=== PATIENT | male | born 1995 | race Two or more races ===

== ENCOUNTER 2017-09-18 03:53 | Emergency (ER) | payer OTHER ==
[~2017-09-18] VITALS: Ht 172.7 cm; Wt 102.9 kg
[2017-09-18 03:55] VITALS: BP 150/98
== END 2017-09-18 04:52 | disposition home or self-care (01) ==
LOC: ED 04:09
DX: K64.4 Residual hemorrhoidal skin tags (principal)
CPT/HCPCS: 99283